=== PATIENT | male | born 1965 | race Caucasian/White ===

== ENCOUNTER 2021-02-23 23:32 | Outpatient (CLI) | payer SELFPAY | END 2021-02-23 23:33 | disposition critical access hospital (66) | LOC: EMS 23:32 | DX: R06.2 Wheezing (principal); R07.1 Chest pain on breathing; Z86.16 Personal history of COVID-19 | CPT/HCPCS: A0425; A0427 ==

== ENCOUNTER 2021-02-23 23:49 | Emergency (ER) | payer SELFPAY ==
[2021-02-24] MEDS ORDERED: DEXAMETHASONE 10 MG/ML VIAL PO STA (01:06)
[2021-02-24] MEDS ORDERED: IPRATROPIUM/ALBUTEROL 3 ML NEB INH STA (01:06)
[2021-02-24] MEDS ORDERED: CHERRY SYRUP 10 ML UDC PO ONE (01:06)
--- NOTE | 2021-02-24 02:31 | ED Physician Documentation ---
PD HPI URI - Stated complaint Stated Complaint: ASTHMA ATTACK - Chief complaint Chief Complaint: Abd Pain - History obtained from History obtained from: Patient - History of Present Illness Timing - onset: How many days ago (4) Timing duration: Days (4) Timing details: Gradual onset, Still present Associated symptoms: Dry cough, Chest pain, Dyspnea Contributing factors: Other (recent COVID infection out of quarantine X 5 days tested negative) Similar symptoms before: Diagnosis (asthma and bronchitis) Recently seen: Other (had covid) - Additional information Additional information: 55-year-old male with a history of asthma has had a recent Covid infection and he has been out of quarantine for 5 days and he has tested negative. He is coming to the emergency department today unable to get a hold of his albuterol inhaler and complaining of 4 days of increasing shortness of breath and chest pain. He states that today was especially bad where he felt like he has had a hard time getting a breath. He did not get any treatment while he was undergoing the Covid. Review of Systems Constitutional: reports: Fatigue. denies: Fever Eyes: denies: Decreased vision Ears: denies: Ear pain Nose: reports: Congestion Throat: denies: Sore throat Cardiac: reports: Chest pain / pressure. denies: Palpitations, Pedal edema, Calf pain Respiratory: reports: Dyspnea, Cough, Wheezing GI: denies: Abdominal Pain, Nausea, Vomiting : denies: Dysuria, Frequency PD PAST MEDICAL HISTORY - Past Medical History Past Medical History: Yes Respiratory: Asthma - Past Surgical History Past Surgical History: No - Present Medications Home Medications: Ambulatory Orders Medication Instructions Recorded Confirmed Albuterol Sulf [Ventolin Hfa 02/24/21 Inhaler] Albuterol Sulf [Ventolin Hfa 1 - 2 puffs INH Q4HR PRN #1 inhaler 02/24/21 Inhaler] Azithromycin [Zithromax] 250 mg PO DAILY #6 tablet 02/24/21 predniSONE [Deltasone] 10 mg PO ONCE #26 tablet 02/24/21 - Allergies Allergies/Adverse Reactions: Allergies Allergy/AdvReac Type Severity Reaction Status Date / Time No Known Drug Allergies Allergy Verified 02/24/21 00:09 - Social History Does the pt smoke?: No Smoking Status: Never smoker Does the pt drink ETOH?: Yes Does the pt have substance abuse?: No - Immunizations Immunizations are current?: Yes PD ED PE NORMAL - Vitals Vital signs reviewed: Yes (Hypertensive) - General General: Alert and oriented X 3, No acute distress, Well developed/nourished - HEENT HEENT: Atraumatic, PERRL, EOMI, Ears normal, Moist mucous membranes, Pharynx benign, Dentition benign - Neck Neck: Supple, no meningeal sign, No bony TTP - Cardiac Cardiac: RRR, No murmur - Respiratory Respiratory: No respiratory distress, Other (Diminished breath sounds and fine wheezes bilaterally) - Back Back: No CVA TTP, No spinal TTP - Derm Derm: Normal color, Warm and dry, No rash - Extremities Extremities: No deformity, No edema - Neuro Neuro: Alert and oriented X 3, 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 No acute process. Probable emphysematous disease involving the bilateral lungs.), EMP read indepedently, See rad report PD MEDICAL DECISION MAKING - ED course Complexity details: reviewed old records, reviewed results, re-evaluated patient, considered differential, d/w patient ED course: 55-year-old male with a history of asthma has had an exacerbation of his asthma with a cough shortly after having Covid. Here in the emergency department he is treated with dexamethasone and we will place him on a course of antibiotic and steroid as well as provide a prescription for a new inhaler. Here in the emergency department he is administered a DuoNeb with improvement. Departure - Departure Disposition: 01 Home, Self Care Clinical Impression: Asthma exacerbation Qualifiers: Asthma severity: mild Asthma persistence: intermittent Qualified Code(s): J45.21 - Mild intermittent asthma with (acute) exacerbation Condition: Stable Instructions: ED Bronchitis Asthmatic Follow-Up: [facility] [Provider Group] Prescriptions: Albuterol Sulf [Ventolin Hfa Inhaler] 1 - 2 puffs INH Q4HR PRN #1 inhaler PRN Reason: Shortness Of Air/Wheezing predniSONE [Deltasone] 10 mg PO ONCE #26 tablet Azithromycin [Zithromax] 250 mg PO DAILY #6 tablet
[2021-02-24 02:44] VITALS: BP 121/83
--- NOTE | 2021-02-24 08:36 | XRAY Report ---
PROCEDURE: Chest 1 View X-Ray INDICATIONS: Chest pain TECHNIQUE: One view of the chest was acquired. COMPARISON: None. FINDINGS: Surgical changes and devices: None. Lungs and pleura: No pleural effusions or pneumothorax. There is no focal airspace opacity. Mildly h yperinflated lungs suggestive of COPD potentially. Somewhat increased lucency in the lung apices whic h is suspected to represent mild emphysematous change. Mediastinum: Mediastinal contours appear normal. Heart size is normal. Bones and chest wall: No suspicious bony lesions. Overlying soft tissues appear unremarkable. IMPRESSION: No acute cardiopulmonary process demonstrated radiographically. Suspected mild hyperinflation and mil d emphysematous change. No significant change from limited report. Reviewed by: Manuel Toledo MD on 02/24/2021 8:35 AM PDT Approved by: Manuel Toledo MD on 02/24/2021 8:35 AM PDT Station ID: [id number]
== END 2021-02-24 02:50 | disposition home or self-care (01) ==
LOC: ED 23:49
DX: J45.21 Mild intermittent asthma with (acute) exacerbation (principal); Z86.16 Personal history of COVID-19
CPT/HCPCS: 71045; 94640; 99283; 99284; A9270